=== PATIENT | female | born 1955 | race Caucasian/White ===

== ENCOUNTER 2019-07-24 15:55 | Emergency (ER) | payer OTHER ==
[~2019-07-24] VITALS: Ht 170.2 cm; Wt 63.6 kg
[2019-07-24 16:16] VITALS: BP 132/60; TEMP 98.7
[2019-07-24] MEDS ORDERED: SYNTHROID 0.0.025 MG (16:32)
[2019-07-24] MEDS ORDERED: CYTOMEL 5MC5 MCG/TAB PO (16:32)
[2019-07-24 16:49] LABS: COLLECTION METHOD CLEAN CATCH
[2019-07-24 16:56] LABS: MUCOUS Present /lpf; PH 6 (5-8); SQUAMOUS EPITHELIAL None Seen /hpf; URINE APPEARANCE Hazy; URINE BACTERIA None Seen /hpf; URINE BILIRUBIN Negative (NEGATIVE); URINE BLOOD Negative (NEGATIVE); URINE COLOR Yellow; URINE GLUCOSE Negative (NEGATIVE); URINE KETONE Negative (NEGATIVE); URINE LEUKOCYTE ESTERASE 3+ (NEGATIVE); URINE NITRATE Positive (NEGATIVE); URINE PROTEIN(semi-quant) Negative (NEGATIVE); URINE RBC 0-2 /hpf; URINE UROBILINOGEN Negative (NEGATIVE)
[2019-07-24] MEDS ORDERED: OMNICEF 300MG300 MG PO (17:28)
[2019-07-24] MEDS ORDERED: ELIQUIS 5MG PO (17:48)
[2019-07-24 18:15] VITALS: PULSE 86
== END 2019-07-24 18:15 | disposition home or self-care (01) ==
LOC: COL.ER 15:55
PROVIDERS: Family Medicine
DX: I82.491 Acute embolism and thrombosis of other specified deep vein of right lower extremity (principal); N39.0 Urinary tract infection, site not specified